=== PATIENT | male | born 1970 ===

== ENCOUNTER 2019-02-21 12:57 | Emergency (ER) | payer SELFPAY ==
[2019-02-21 13:27] VITALS: BP 152/88
--- NOTE | 2019-02-21 13:29 | Event Note ---
ED Screening Note Date of service: 02/21/19 Time: 13:25 ED Screening Note: This is a 48 y.o. M. that presents to the ER with right knee pain s/p fall. Patient fell from 4 floors. Denies loc, hitting head This initial assessment/diagnostic orders/clinical plan/treatment(s) is/are subject to change based on patients health status, clinical progression and re- assessment by fellow clinical providers in the ED. Further treatment and workup at subsequent clinical providers discretion. Patient/guardian urged not to elope from the ED as their condition may be serious if not clinically assessed and managed. Initial orders include: XR of right knee
--- NOTE | 2019-02-21 14:01 | XRay Report ---
RIGHT KNEE, 3 VIEWS INDICATION: swelling and pain, fall. COMPARISON: None. IMPRESSION: No acute osseous or soft tissue abnormality. No significant DJD. Signer Name: Castro Fritz Jr, MD Signed: 02/21/2019 1:56 PM Workstation Name: [id number]
--- NOTE | 2019-02-21 14:26 | Emergency Department Report ---
ED Lower Extremity HPI - General Chief Complaint: Extremity Injury, Lower Stated Complaint: RT KNEE INJURY/FALL Time Seen by Provider: 02/21/19 13:25 Source: patient Mode of arrival: Ambulatory Limitations: No Limitations - History of Present Illness MD Complaint: knee injury -: This morning Injury: Knee: Right Type of Injury: blunt Place: work Severity: moderate Severity scale (0 -10): 4 Improves With: immobilization Worsens With: movement Context: fall - Related Data Allergies Allergy/AdvReac Type Severity Reaction Status Date / Time No Known Allergies Allergy Unverified 02/21/19 13:27 ED Review of Systems ROS: Stated complaint: RT KNEE INJURY/FALL Other details as noted in HPI Comment: All other systems reviewed and negative Constitutional: denies: chills, fever Respiratory: denies: cough, shortness of breath, SOB with exertion, SOB at rest, wheezing Cardiovascular: denies: chest pain, palpitations Gastrointestinal: denies: abdominal pain, nausea, vomiting Musculoskeletal: denies: back pain ED Past Medical Hx - Past Medical History Previous Medical History?: No - Surgical History Past Surgical History?: No - Social History Smoking Status: Never Smoker Substance Use Type: None ED Physical Exam - General Limitations: No Limitations General appearance: alert, in no apparent distress - Head Head exam: Present: atraumatic, normocephalic, normal inspection - Eye Eye exam: Present: normal appearance - ENT ENT exam: Present: normal exam, normal orophraynx, mucous membranes moist - Neck Neck exam: Present: normal inspection, full ROM. Absent: tenderness, meningismus, lymphadenopathy, thyromegaly - Respiratory Respiratory exam: Present: normal lung sounds bilaterally - Cardiovascular Cardiovascular Exam: Present: regular rate, normal rhythm, normal heart sounds - GI/Abdominal GI/Abdominal exam: Present: soft, normal bowel sounds. Absent: distended, tenderness, guarding, rebound, rigid - Expanded Lower Extremity Exam Right Upper Leg exam: Present: normal inspection, full ROM Knee exam: Present: normal inspection, full ROM, tenderness. Absent: swelling, abrasion, laceration Lower Leg exam: Present: normal inspection, full ROM. Absent: tenderness Neuro vascular tendon exam: Present: no vascular compromise Gait: Positive: observed and normal - Back Exam Back exam: Present: normal inspection, full ROM. Absent: CVA tenderness (R) - Neurological Exam Neurological exam: Present: alert, oriented X3, CN II-XII intact - Skin Skin exam: Present: warm, intact, normal color ED Course Vital Signs 02/21/19 13:26 Temperature 98.3 F Pulse Rate 88 Respiratory 18 Rate Blood Pressure 152/88 O2 Sat by Pulse 97 Oximetry ED Lower Extremity MDM - Radiology Data Radiology results: report reviewed X-ray of the right knee is unremarkable. Critical care attestation.: If time is entered above; I have spent that time in minutes in the direct care of this critically ill patient, excluding procedure time. ED Disposition Clinical Impression: Contusion of right knee Disposition: DC-01 TO HOME OR SELFCARE Is pt being admited?: No Condition: Stable Instructions: Contusion in Adults (ED) Referrals: [facility] [Provider Group] - 3-5 Days
== END 2019-02-21 14:36 | disposition home or self-care (01) ==
LOC: ED 12:57
DX: S80.01XA Contusion of right knee, initial encounter (principal); X58.XXXA Exposure to other specified factors, initial encounter; Y93.89 Activity, other specified; Y92.89 Other specified places as the place of occurrence of the external cause; Y99.8 Other external cause status